=== PATIENT | female | born 1955 | race Caucasian/White ===

== ENCOUNTER 2017-01-22 15:24 | Observation (INO) | payer MEDICARE, OTHER ==
[~2017-01-22] VITALS: Ht 160 cm; Wt 47.9 kg
[2017-01-22] MEDS ORDERED: SODIUM CHLORIDE 0.9% 1,000 ML IV SCH (16:14)
[2017-01-22] MEDS ORDERED: AMLO5TAB2 PO (16:22)
[2017-01-22] MEDS ORDERED: LEFL20TA16 PO (16:22)
[2017-01-22] MEDS ORDERED: LOSA50TA6 PO (16:22)
[2017-01-22] MEDS ORDERED: HYDR-3276 PO (16:22)
[2017-01-22] MEDS ORDERED: FURO80TA3 PO (16:22)
[2017-01-22] MEDS ORDERED: SEVE800T8 PO (16:22)
[2017-01-22 16:30] VITALS: BP 168/98
[2017-01-22] MEDS ORDERED: PLEASE ENTER ALLERGIES MC SCH ×2 (16:30)
[2017-01-22 17:00] LABS: ASPARTATE AMINO TRANSFERASE 15 U/L (15-37); BLOOD UREA NITROGEN 20 mg/dL (7-18)
[2017-01-22] MEDS ORDERED: BUPIVACAINE/PF 0.5% ONE (18:21)
[2017-01-22] MEDS ORDERED: PROTAMINE SULFATE 10 MG/ML, 5ML ONE (18:21)
[2017-01-22] MEDS ORDERED: HEPARIN 1,000 UNITS/ML, 30ML ONE (18:21)
[2017-01-22] MEDS ORDERED: THROMBIN 5,000 UNIT VIAL TP ONE ×2 (18:22→19:31)
[2017-01-22] MEDS ORDERED: MIDAZOLAM 1 MG/ML, 2ML ONE (18:26)
[2017-01-22] MEDS ORDERED: FENTANYL PF 100 MCG/2ML ONE ×4 (18:26→21:28)
[2017-01-22] MEDS ORDERED: DEXAMETHASONE 4 MG/ML, 1ML ONE (18:27)
[2017-01-22] MEDS ORDERED: CEFAZOLIN 1,000 MG ONE (18:27)
[2017-01-22] MEDS ORDERED: PROPOFOL 10 MG/ML, 20ML ONE (18:27)
[2017-01-22] MEDS ORDERED: ONDANSETRON 2MG/ML, 2ML ONE (18:27)
[2017-01-22] MEDS ORDERED: LIDOCAINE-MPF 2% ,5ML ONE (18:27)
[2017-01-22] MEDS ORDERED: SUCCINYLCHOLINE 20 MG/ML, 10ML ONE (18:29)
[2017-01-22] MEDS ORDERED: HEPARIN 5,000 UNITS/ML, 1ML ONE (19:00)
[2017-01-22] MEDS ORDERED: HEPARIN 1,000 UNITS/ML, 30ML IVPush ONE (19:33)
[2017-01-22] MEDS ORDERED: THROMBIN 20,000 UNIT VIAL TP ONE (20:18)
[2017-01-22] MEDS ORDERED: EPHEDRINE 50 MG/ML, 1ML ONE (20:35)
[2017-01-22] MEDS ORDERED: BUPIVACAINE/PF 0.5% INJ ONE (21:04)
[2017-01-22] MEDS ORDERED: ACETAMINOPHEN 650 MG/20.3 ML UDC ONE (21:28)
[2017-01-22] MEDS ORDERED: OXYcodone 5 MG/5 ML ORAL.SOL UDC ONE (21:28)
[2017-01-22] MEDS ORDERED: MIDAZOLAM 1 MG/ML, 2ML IV PRN (21:30)
[2017-01-22] MEDS ORDERED: MEPERIDINE/PF 25MG/0.5ML IVPush PRN (21:30)
[2017-01-22] MEDS ORDERED: LORazepam 2 MG/ML, 1ML IVPush PRN (21:30)
[2017-01-22] MEDS ORDERED: HYDROmorphone 1 MG/ML, 1ML IV PRN ×2 (21:30→23:00)
[2017-01-22] MEDS ORDERED: ACETAMINOPHEN 325 MG TABLET PO PRN ×2 (21:30→23:00)
[2017-01-22] MEDS ORDERED: OXYcodone 5 MG/5 ML ORAL.SOL UDC PO PRN (21:30)
[2017-01-22] MEDS ORDERED: ALBUTEROL/IPRATROPIUM 2.5MG/0.5MG, 3 ML NPPB PRN (21:30)
[2017-01-22] MEDS ORDERED: PROMETHAZINE 25 MG/ML, 1ML IV PRN (21:30)
[2017-01-22] MEDS ORDERED: ONDANSETRON 2MG/ML, 2ML IVPush PRN (21:30)
[2017-01-22] MEDS: FENTANYL PF 100 MCG/2ML IV PRN ×2 (21:32→21:40)
[2017-01-22] MEDS ORDERED: HYDROmorphone 1 MG/ML, 1ML ONE (21:50)
[2017-01-22] MEDS ORDERED: ENALAPRILAT 1.25 MG/ML, 2ML IV PRN (23:00)
[2017-01-22] MEDS ORDERED: D5%-0.45% NACL 1,000 ML IV SCH (23:00)
[2017-01-22] MEDS ORDERED: hydrALAzine 20 MG/ML, 1ML IV PRN (23:00)
[2017-01-22] MEDS ORDERED: ONDANSETRON 2MG/ML, 2ML IV PRN (23:00)
[2017-01-22] MEDS ORDERED: DIPHENHYDRAMINE 25 MG CAPSULE PO PRN (23:00)
[2017-01-22] MEDS ORDERED: KETOROLAC 30 MG/1 ML IV PRN (23:00)
[2017-01-22] MEDS ORDERED: ACETAMINOPHEN 650 MG SUPP PR PRN (23:00)
[2017-01-22] MEDS ORDERED: DIPHENHYDRAMINE 50 MG/ML, 1ML IV PRN (23:00)
[2017-01-22 23:13] VITALS: BP 132/81
[2017-01-22] MEDS: SEVELAMER 800MG TABLET PO SCH (23:24)
[2017-01-23] MEDS: HEPARIN 5,000 UNITS/ML, 1ML SQ SCH ×2 (01:32→08:57)
[2017-01-23 04:10] VITALS: BP 126/76
[2017-01-23 05:03] LABS: HEMATOCRIT 25.2 % (34.6-47.8); HEMOGLOBIN 8.3 g/dL (11.7-16.4)
[2017-01-23 05:06] LABS: BLOOD UREA NITROGEN 28 mg/dL (7-18)
[2017-01-23 07:02] VITALS: BP 112/72
[2017-01-23] MEDS: SEVELAMER 800MG TABLET PO SCH (08:51)
[2017-01-23] MEDS ORDERED: LEFLUNOMIDE 20 MG TABLET PO SCH (09:00)
[2017-01-23] MEDS ORDERED: FUROSEMIDE 80 MG TABLET PO SCH (09:00)
[2017-01-23] MEDS ORDERED: LOSARTAN 50MG TABLET PO SCH (09:00)
[2017-01-23] MEDS ORDERED: AMLODIPINE 5 MG TABLET PO SCH (09:00)
== END 2017-01-23 12:01 | disposition home or self-care (01) ==
LOC: OR 15:24 → 4NOR 22:15 → OR 22:31 → 4NOR 22:32 → DCLOUNGE 01-23 11:27
PROVIDERS: ADMIT Surgery; ATTEND Surgery
DX: N18.6 End stage renal disease (principal); I12.0 Hypertensive chronic kidney disease with stage 5 chronic kidney disease or end stage renal disease; M06.9 Rheumatoid arthritis, unspecified; K21.9 Gastro-esophageal reflux disease without esophagitis; L98.9 Disorder of the skin and subcutaneous tissue, unspecified; Z90.710 Acquired absence of both cervix and uterus; Z98.51 Tubal ligation status; Z99.2 Dependence on renal dialysis
CPT/HCPCS: 36415; 36832; 71010; 77001; 80048; 80053; 82040; 85025; 96372; 96374; C1751; G0378; J0330; J0690; J1100; J1170; J1644; J1885; J2250; J2405; J2704; J2720; J3010; J3490; J7030